=== PATIENT | male | born 1955 | race African-American/Black ===

== ENCOUNTER 2017-08-22 09:50 | Emergency (ER) | payer SELFPAY ==
[~2017-08-22] VITALS: Ht 182.9 cm; Wt 100.0 kg
[~2017-08-22 09:50] MED LIST: ASPI-1159 PO; ATEN-42 PO; GLUCO8; LOSA100T14 PO; POTA20TA82 PO; SIMV40TA5 PO
[2017-08-22 10:40] VITALS: BP 144/97
[2017-08-22] MEDS ORDERED: ACETAMINOPHEN 325MG TABLET PO ONE (10:45)
[2017-08-22] MEDS ORDERED: IBUPROFEN 400MG TABLET PO ONE (10:45)
== END 2017-08-22 12:04 | disposition home or self-care (01) ==
LOC: ER 10:11
DX: S92.425A Nondisplaced fracture of distal phalanx of left great toe, initial encounter for closed fracture (principal); I25.10 Atherosclerotic heart disease of native coronary artery without angina pectoris; E11.9 Type 2 diabetes mellitus without complications; I10 Essential (primary) hypertension; I25.2 Old myocardial infarction; Z98.890 Other specified postprocedural states; Z90.49 Acquired absence of other specified parts of digestive tract; Z79.82 Long term (current) use of aspirin; W01.0XXA Fall on same level from slipping, tripping and stumbling without subsequent striking against object, initial encounter; Y93.89 Activity, other specified; Y92.018 Other place in single-family (private) house as the place of occurrence of the external cause
CPT/HCPCS: 73630; 99284; Z7610

== ENCOUNTER 2022-04-28 19:23 | Emergency (ER) | payer MEDICARE ==
[~2022-04-28] VITALS: Ht 182.9 cm; Wt 102.0 kg
[~2022-04-28 19:23] MED LIST changes: -ASPI-1159 PO; +ASPI-1497 PO; -LOSA100T14 PO; +LOSA100T32 PO; +POTA-205 PO; -POTA20TA82 PO; +SIMV-46 PO; -SIMV40TA5 PO
[2022-04-28 20:15] VITALS: BP 129/80
== END 2022-04-28 21:14 | disposition left against medical advice (07) ==
LOC: ER 19:23
DX: Z53.21 Procedure and treatment not carried out due to patient leaving prior to being seen by health care provider (principal)